=== PATIENT | female | born 2000 | race Hispanic/Latino ===

== ENCOUNTER 2020-07-24 19:02 | Inpatient (IN) | payer BC, MEDICAID ==
[~2020-07-24] VITALS: Ht 167.6 cm; Wt 129.3 kg
[2020-07-24] MEDS ORDERED: PREN-196 PO (19:22)
[2020-07-24 19:44] LABS: APPEARANCE,URINE CLOUDY (CLEAR); BILIRUBIN,URINE NEGATIVE (NEGATIVE); COLOR,URINE YELLOW (YELLOW); GLUCOSE, URINE (UA) NEGATIVE (NEGATIVE); KETONES,URINE NEGATIVE (NEGATIVE); LEUKOCYTE ESTERASE ,URINE MODERATE (NEGATIVE); NITRATE,URINE NEGATIVE (NEGATIVE); OCCULT BLOOD,URINE TRACE-LYSED (NEGATIVE); PROTEIN,URINE NEGATIVE (NEGATIVE); UROBILINOGEN,URINE 0.2 mg/dL (0.2-1.0)
[2020-07-24 19:56] LABS: BACTERIA,URINE Few /HPF (None Seen); SQUAMOUS EPITHELIAL CELL,UR Moderate /HPF (0-2)
[2020-07-24 20:34] LABS: AMPHET/METH SCREEN,URINE NEGATIVE (NEGATIVE); BARBITURATE SCREEN, URINE NEGATIVE (NEGATIVE); BENZODIAZEPINES SCREEN,URINE NEGATIVE (NEGATIVE); CANNABINOID SCREEN,URINE NEGATIVE (NEGATIVE); COCAINE SCREEN,URINE NEGATIVE (NEGATIVE); OPIATE SCREEN,URINE NEGATIVE (NEGATIVE); PHENCYCLIDINE SCREEN,URINE NEGATIVE (NEGATIVE)
[2020-07-24] MEDS ORDERED: AMPICILLIN 2GM+NS 100ML 100 ML IV SCH (21:30)
[2020-07-24 22:08] LABS: HEMATOCRIT 35.4 % (36-48); MEAN CORPUSCULAR HEMOGLOBIN 28.3 pg (27.0-33.0); MEAN CORPUSCULAR HGB CONC 32.5 g/dL (32.0-36.0); MEAN CORPUSCULAR VOLUME 87.2 fL (80-100); RED BLOOD CELL COUNT(AUTO) 4.06 MIL/uL (4.00-5.50); RED CELL DISTRIBUTION WIDTH 13.3 % (11.0-15.5); WHITE BLOOD COUNT (AUTO) 12.8 K/uL (4.8-10.8)
[2020-07-25] MEDS ORDERED: LACTATED RINGERS 1000ML 1,000 ML IV ONE (01:05)
[2020-07-25] MEDS ORDERED: NALOXONE HCL 0.4 MG/1 ML ML IV PRN ×2 (01:15→10:15)
[2020-07-25] MEDS ORDERED: LACTATED RINGERS 500 ML 500 ML IV PRN ×2 (01:15→10:15)
[2020-07-25] MEDS ORDERED: MEPERIDINE-PF 50 MG/ML SYG IVP ONE (01:15)
[2020-07-25] MEDS ORDERED: EPHEDRINE SULFATE 50 MG/ML AMPULE IVP PRN ×2 (01:15→19:30)
[2020-07-25] MEDS: AMPICILLIN 1GM+NS 50ML 50 ML IV SCH ×4 (01:45→15:59)
[2020-07-25] MEDS ORDERED: LACTATED RINGERS 1000ML 1,000 ML IV PRN (07:00)
[2020-07-25] MEDS ORDERED: LIDOCAINE HCL 1% 20 ML VIAL ONE (08:09)
[2020-07-25] MEDS: AZITHROMYCIN 500MG+NS 250ML 250 ML IV SCH (09:16)
[2020-07-25] MEDS ORDERED: OXYTOCIN-LR 20 UNITS/1000 ML 1,000 ML IV ONE (09:57)
[2020-07-25] MEDS ORDERED: OXYTOCIN-LR 20 UNITS/1000 ML 1,000 ML IV SCH ×2 (10:00→10:15)
[2020-07-25] MEDS ORDERED: ROPIVACAINE 0.2% 100ML VIAL 100 ML EP SCH (10:15)
[2020-07-25] MEDS ORDERED: CALDOLOR 800MG+NS 250ML 250 ML IV ONE (15:36)
[2020-07-25] MEDS ORDERED: CEFAZOLIN SODIUM 1 GM VIAL ONE (15:36)
[2020-07-25] MEDS ORDERED: MISOPROSTOL 200 MCG TABLET ONE (15:37)
[2020-07-25] MEDS ORDERED: CEFAZOLIN SODIUM 1 GM VIAL IVP PRN (16:15)
[2020-07-25] MEDS ORDERED: CALDOLOR 800MG+NS 250ML 250 ML IV PRN (16:15)
[2020-07-25] MEDS ORDERED: 0.9%NACL 10ML VIAL IVP PRN (17:45)
[2020-07-25] MEDS ORDERED: OXYTOCIN-LR 20 UNITS/1000 ML 1,000 ML IV PRN (17:45)
[2020-07-25] MEDS: CEFAZOLIN SODIUM 100 GM IV SCH (17:45)
[2020-07-25] MEDS ORDERED: DEXTROSE 5 %-0.45 % NACL 1,000 ML IV PRN (17:45)
[2020-07-25] MEDS: PROMETHAZINE HCL 25 MG/ML 1ML AMPULE IM PRN ×2 (19:29→23:50)
[2020-07-25] MEDS: MEPERIDINE-PF 75 MG/ML SYG IM PRN ×2 (19:29→23:51)
[2020-07-25] MEDS ORDERED: ONDANSETRON 4MG INJ IVP PRN (19:30)
[2020-07-25] MEDS ORDERED: NALOXONE HCL 0.4 MG/1 ML ML IVP PRN ×3 (19:30)
[2020-07-25] MEDS ORDERED: DiphenhydrAMINE HCL 50 MG/ML VIAL IVP PRN (19:30)
[2020-07-25 20:34] VITALS: BP 120/65
[2020-07-25 23:35] VITALS: BP 125/74
[2020-07-26] MEDS: PROMETHAZINE HCL 25 MG/ML 1ML AMPULE IM SCH (01:15)
[2020-07-26] MEDS: CEFAZOLIN SODIUM 100 GM IV SCH ×2 (02:00→09:01)
[2020-07-26] MEDS: CALDOLOR 800MG+NS 250ML 250 ML IV SCH ×2 (02:18→10:30)
[2020-07-26 03:38] VITALS: BP 113/58
[2020-07-26] MEDS: PROMETHAZINE HCL 25 MG/ML 1ML AMPULE IM PRN (05:41)
[2020-07-26] MEDS: MEPERIDINE-PF 75 MG/ML SYG IM PRN (05:42)
[2020-07-26 06:00] LABS: HEMATOCRIT 29.2 % (36-48); MEAN CORPUSCULAR HEMOGLOBIN 28.6 pg (27.0-33.0); MEAN CORPUSCULAR HGB CONC 32.9 g/dL (32.0-36.0); MEAN CORPUSCULAR VOLUME 86.9 fL (80-100); RED BLOOD CELL COUNT(AUTO) 3.36 MIL/uL (4.00-5.50); RED CELL DISTRIBUTION WIDTH 13.4 % (11.0-15.5); WHITE BLOOD COUNT (AUTO) 15.4 K/uL (4.8-10.8)
[2020-07-26 07:17] LABS: HEPATITIS Bs ANTIGEN SCREEN P Negative (Negative)
[2020-07-26 07:29] VITALS: BP 102/49
[2020-07-26] MEDS: AZITHROMYCIN 500MG+NS 250ML 250 ML IV SCH (08:14)
[2020-07-26] MEDS ORDERED: ACETAMINOPHEN 500 MG TABLET PO PRN (08:30)
[2020-07-26] MEDS ORDERED: HYDROCODONE/ACETAMINOPHEN 5/325 MG TAB PO PRN (08:30)
[2020-07-26] MEDS ORDERED: IBUPROFEN 600 MG TABLET PO PRN (08:30)
[2020-07-26] MEDS ORDERED: BISACODYL 10 MG SUPP.RECT RC PRN (08:30)
[2020-07-26] MEDS: SIMETHICONE 80 MG TAB.CHEW PO PRN ×3 (10:14→21:00)
[2020-07-26] MEDS: DOCUSATE SODIUM 100 MG CAP PO SCH ×2 (10:14→21:01)
[2020-07-26 11:23] VITALS: BP 105/64
[2020-07-26 16:00] VITALS: BP 124/60
[2020-07-26] MEDS: IBUPROFEN 800 MG TAB PO SCH (17:25)
[2020-07-26 20:00] VITALS: BP 118/63
[2020-07-26 23:34] VITALS: BP 143/67
[2020-07-26] MEDS: ACETAMINOPHEN WITH CODEINE 1 TAB TAB PO PRN (23:37)
[2020-07-27] MEDS: IBUPROFEN 800 MG TAB PO SCH ×2 (02:00→10:20)
[2020-07-27 03:34] VITALS: BP 116/71
[2020-07-27 07:19] VITALS: BP 102/54
[2020-07-27] MEDS: AZITHROMYCIN 500MG+NS 250ML 250 ML IV SCH (08:26)
[2020-07-27] MEDS: DOCUSATE SODIUM 100 MG CAP PO SCH (08:26)
[2020-07-27] MEDS: SIMETHICONE 80 MG TAB.CHEW PO PRN ×2 (08:26→15:06)
[2020-07-27] MEDS: ACETAMINOPHEN WITH CODEINE 1 TAB TAB PO PRN ×2 (08:31→15:05)
[2020-07-27 11:06] VITALS: BP 124/94
[2020-07-27 15:55] VITALS: BP 123/67
== END 2020-07-27 16:45 | disposition home or self-care (01) | DRG 787 ==
LOC: EDH 19:02 → LDH 19:03 → OBSVTOIN 19:03 → WSH 07-25 20:25
PROVIDERS: ADMIT Obstetrics & Gynecology; ATTEND Obstetrics & Gynecology
PROC: 10D00Z1 Extraction of Products of Conception, Low, Open Approach (ICD-10-PCS; principal; 2020-07-25 16:50)
DX: O62.1 Secondary uterine inertia (principal); O98.82 Other maternal infectious and parasitic diseases complicating childbirth; Z3A.37 37 weeks gestation of pregnancy; Z37.0 Single live birth; E66.9 Obesity, unspecified; O99.214 Obesity complicating childbirth; O99.824 Streptococcus B carrier state complicating childbirth
CPT/HCPCS: 36415; 59510; 76805; 80305; 81001; 85027; 86592; 86850; 86900; 86901; 87088; 87340; 96360; 96361; A4314; A4344; G0378; J0290; J0456; J0690; J1741; J2175; J2550; J2590; J7120